=== PATIENT | male | born 1950 | race Caucasian/White ===

== ENCOUNTER 2017-04-02 17:38 | Emergency (ER) | payer OTHER ==
[~2017-04-02] VITALS: Ht 175.3 cm; Wt 113.4 kg
[2017-04-02] MEDS ORDERED: COZAAR25 MG (17:55)
== END 2017-04-02 18:53 | disposition home or self-care (01) ==
LOC: ED 17:38
DX: S20.212A Contusion of left front wall of thorax, initial encounter (principal); I10 Essential (primary) hypertension; J45.909 Unspecified asthma, uncomplicated; Z88.2 Allergy status to sulfonamides; Z88.6 Allergy status to analgesic agent; Z88.5 Allergy status to narcotic agent; Z91.013 Allergy to seafood; Z88.0 Allergy status to penicillin; Z79.899 Other long term (current) drug therapy; X58.XXXA Exposure to other specified factors, initial encounter
CPT/HCPCS: 71020; 99283

== ENCOUNTER 2022-05-25 07:53 | Emergency (ER) | payer MEDICARE, OTHER ==
[~2022-05-25] VITALS: Ht 175.3 cm; Wt 112.1 kg
[~2022-05-25 07:53] MED LIST: COZAAR25 MG
[2022-05-25] MEDS ORDERED: IRBESARTAN300 MG PO (08:11)
[2022-05-25] MEDS ORDERED: SUDOGEST30 MG PO (10:30)
[2022-05-25] MEDS ORDERED: ANTIVERT25 M1 PO (10:30)
[2022-05-25] MEDS ORDERED: PREDNISONE20 MG PO (10:30)
--- NOTE | 2022-05-26 16:21 | EKG ---
[facility] [address] [facility] [place] [address] Signed Sinus rhythm with marked sinus arrhythmia Otherwise normal ECG No previous ECGs available Confirmed by SYDNEY VALENTINE MD ([id number] on 05/26/2022 4:21:29 PM Electronically Signed By: SYDNEY VALENTINE MD 05/26/22 1621 PATIENT NAME: JAGRUTI JUAREZ Electrocardiogram DATE OF : 54 PHYSICIAN: SYDNEY VALENTINE MD REPORT #: [id number] REPORT IS CONFIDENTIAL AND NOT TO BE RELEASED WITHOUT AUTHORIZATION
== END 2022-05-25 10:59 | disposition home or self-care (01) ==
LOC: ED 07:53
DX: S16.1XXA Strain of muscle, fascia and tendon at neck level, initial encounter (principal); H83.03 Labyrinthitis, bilateral; I10 Essential (primary) hypertension; J45.909 Unspecified asthma, uncomplicated; Z88.6 Allergy status to analgesic agent; Z88.2 Allergy status to sulfonamides; Z88.0 Allergy status to penicillin; Z91.013 Allergy to seafood; Z91.030 Bee allergy status; X58.XXXA Exposure to other specified factors, initial encounter
CPT/HCPCS: 36415; 71045; 80053; 81001; 83735; 84484; 85025; 93005; 93010; 96361; 96374; 99284-25; A9270; J1100; J2405; J7030

== ENCOUNTER 2024-02-23 14:12 | Emergency (ER) | payer MEDICARE, OTHER ==
[~2024-02-23 14:12] MED LIST changes: +AMLODIPINE BESYL5 MG PO; +ANTIVERT25 M1 PO; +IRBESARTAN300 MG PO; +NEURONTIN300 MG PO; +PREDNISONE20 MG PO; +ROSUVASTATIN CA10 MG PO; +SUDOGEST30 MG PO
[2024-02-23 14:57] LABS: BASOPHILS 0.5 % (0-2); EOSINOPHILS 0.6 % (0-6); HEMATOCRIT 42.2 % (35.0-50.0); HEMOGLOBIN 14.2 g/dL (12.0-18.0); LYMPHOCYTES 8.7 % (24-44); MCHC 33.7 g/dl (30-36); MCV 88.8 fl (81-99); MONOCYTES 4.9 % (0-12); NEUTROPHILS 85.3 % (39-80); PLATELET COUNT 239 K/uL (140-440); RBC 4.75 M/ul (4.3-5.7); RDW 14.5 (10.5-15.0)
[2024-02-23 15:13] LABS: ALBUMIN 4.2 g/dL (3.4-5.0); ALCOHOL, MEDICAL <3 ng/dL (<3); ALKALINE PHOSPHATASE 61 U/L (46-116); ALT (SGPT) 45 U/L (14-59); ANION GAP 15.6 (7-21); AST (SGOT) 22 U/L (15-37); BILIRUBIN, TOTAL 0.9 ng/dL (0.2-1.0); BUN/CREATININE RATIO 13.75 (6.0-28.6); CARBON DIOXIDE 26 mmol/L (21-32); CHLORIDE 101 mmol/L (98-107); GLOMERULAR FILTRATION RATE,EST 95 mL/min (>60); POTASSIUM 3.6 mmol/L (3.5-5.1); PROTEIN, TOTAL 7.7 g/dL (6.4-8.2); UREA NITROGEN 11 mg/dL (7-18)
[2024-02-23 16:21] LABS: AMPHETAMINES, URINE NEGATIVE (NEGATIVE); BENZODIAZEPINE, URINE NEGATIVE (NEGATIVE); BUPRENORPHINE, URINE NEGATIVE (NEGATIVE); CANNABINOID, URINE NEGATIVE (NEGATIVE); COCAINE, URINE NEGATIVE (NEGATIVE); ECSTASY, URINE NEGATIVE (NEGATIVE); FENTANYL, URINE NEGATIVE (NEGATIVE); METHADONE, URINE NEGATIVE (NEGATIVE); OPIATES, URINE NEGATIVE (NEGATIVE); OXYCODONE, URINE NEGATIVE (NEGATIVE); PHENCYCLIDINE, URINE NEGATIVE (NEGATIVE)
[2024-02-23] MEDS ORDERED: MAGNESIUM CITRATE 300 ML BTL PO ONE (16:30)
[2024-02-23 16:32] VITALS: BP 163/90
[2024-02-23 16:34] LABS: BARBITURATES, URINE NEGATIVE (NEGATIVE)
== END 2024-02-23 16:38 | disposition home or self-care (01) ==
LOC: ED 14:12
PROVIDERS: Emergency Medicine
DX: S06.9X9A Unspecified intracranial injury with loss of consciousness of unspecified duration, initial encounter (principal); I10 Essential (primary) hypertension; J45.909 Unspecified asthma, uncomplicated; W28.XXXA Contact with powered lawn mower, initial encounter; Y92.828 Other wilderness area as the place of occurrence of the external cause; Z91.030 Bee allergy status; Z88.2 Allergy status to sulfonamides; Z88.6 Allergy status to analgesic agent; Z88.5 Allergy status to narcotic agent; Z88.0 Allergy status to penicillin; Z91.013 Allergy to seafood; Z79.52 Long term (current) use of systemic steroids; Z79.899 Other long term (current) drug therapy
CPT/HCPCS: 36415; 70450; 72125; 80053; 80307; 85025; 99284-25; G0480